=== PATIENT | female | born 1985 | race Caucasian/White ===

== ENCOUNTER 2022-02-14 18:59 | Emergency (ER) | payer SELFPAY ==
--- NOTE | 2022-02-14 20:16 | RAD REPORT ---
EXAM DESCRIPTION: RAD - Wrist Left 3 View - 02/14/2022 8:06 pm CLINICAL HISTORY: Pain COMPARISON: No comparisons FINDINGS/IMPRESSION: Distal radial impaction fracture with overriding and approximately 2/3 shaft wi dth of posterior displacement. Dorsal tilt of the distal radius is present. The fracture likely exten ds to the articular surface. Mildly displaced ulnar styloid fracture.
[2022-02-14] MEDS ORDERED: ONDANSETRON 4 MG/2 ML VIAL ONE ×2 (20:17→21:49)
[2022-02-14] MEDS ORDERED: MORPHINE 4 MG/ML SYR ONE (20:17)
[2022-02-14] MEDS ORDERED: propofoL 200 MG/20 ML VIAL IV ONE ×2 (21:50→22:13)
--- NOTE | 2022-02-14 22:28 | ER ---
Nurse's Notes [facility] Name: Teena Mensah Age: 36 yrs Sex: Female : 1985 Arrival Date: 02/14/2022 Time: 19:02 Bed 13 Private MD: Diagnosis: Displaced transverse fracture of shaft of left radius;Nondisplaced fracture of left ulna styloid process, initial encounter for closed fracture Presentation: 02/14 19:16 Chief complaint: Patient states: I was running in a race and fell and feel like I jb4 dislocated my wrist. Coronavirus screen: At this time, the client does not indicate any symptoms associated with coronavirus-19. Ebola Screen: No symptoms or risks identified at this time. 19:16 Method Of Arrival: Wheelchair jb4 19:16 Initial Sepsis Screen: Does the patient meet any 2 criteria? No. Patient's initial jb4 sepsis screen is negative. Does the patient have a suspected source of infection? No. Patient's initial sepsis screen is negative. Risk Assessment: Do you want to hurt yourself or someone else? Patient reports no desire to harm self or others. Onset of symptoms was February 14, 2022. Transition of care: patient was not received from another setting of care. 19:16 Acuity: ANGEL 3 jb4 Triage Assessment: 21:50 General: Appears uncomfortable, Behavior is appropriate for age. Pain: Complains of ke1 pain in left arm Pain currently is 10 out of 10 on a pain scale. Musculoskeletal: Range of motion: limited in left elbow and left wrist. Historical: - Allergies: 19:22 No Known Allergies; jb4 - Home Meds: 19:22 None [Active]; jb4 - PMHx: 19:22 None; jb4 - PSHx: 19:22 tubal ligation; jb4 - Immunization history:: Adult Immunizations up to date. - Social history:: Smoking status: Patient denies any tobacco usage or history of. - Family history:: not pertinent. - Hospitalizations: : No recent hospitalization is reported. Screenin:50 Abuse screen: Denies threats or abuse. Nutritional screening: No deficits noted. ke1 Tuberculosis screening: No symptoms or risk factors identified. Fall Risk Fall in past 12 months (25 points). No secondary diagnosis (0 pts). IV access (20 points). Ambulatory Aid- None/Bed Rest/Nurse Assist (0 pts). Gait- Normal/Bed Rest/Wheelchair (0 pts) Mental Status- Oriented to own ability (0 pts). Total Saravia Fall Scale indicates High Risk Score (45 or more points). Vital Signs: 19:16 BP 107 / 62; Pulse 103; Resp 16; Temp 98.5(O); Pulse Ox 97% on R/A; Weight 72.57 kg jb4 (R); Height 5 ft. 1 in. (154.94 cm); Pain 10/10; 19:16 Body Mass Index 30.23 (72.57 kg, 154.94 cm) jb4 ED Course: 19:02 Patient arrived in ED. bp1 19:03 Jaret South MD is Attending Physician. rn 19:22 Triage completed. jb4 19:22 Arm band placed on right wrist. jb4 19:40 Cj He RN is Primary Nurse. ke1 20:08 XRAY Wrist LEFT 3 view In Process Unspecified. EDMS 20:25 Inserted saline lock: 20 gauge in right antecubital area, using aseptic technique. ke1 22:00 Assist provider with reduction of left wrist. ke1 22:27 Bryant Stewart MD is Referral Physician. rn 22:52 XRAY Wrist LEFT 2 view In Process Unspecified. EDMS Administered Medications: 20:26 Drug: morphine 4 mg Route: IVP; Site: right antecubital; ke1 20:26 Drug: Zofran (Ondansetron) 4 mg Route: IVP; Site: right antecubital; ke1 22:00 Drug: Zofran (Ondansetron) 2 mg Route: IVP; Site: right antecubital; ke1 22:05 Drug: Propofol 50 mg {Note: 2207 50 MG 2210 50 MG.} Route: IVP; Site: right antecubital;ke1 Outcome: 22:28 Discharge ordered by . rn 23:34 Patient left the ED. jb4 Signatures: Dispatcher [employer] EDMS Jaert South MD MD rn Bryson, James, RN RN jb4 Teena Henry bp1 Cj He RN RN ke1 Corrections: (The following items were deleted from the chart) 19:22 19:16 Resp 16bpm; Temp 98.5F Oral; Height 5 ft. 1 in.; Pain 08/10; jb4 jb4 22:54 22:05 Propofol 50 mg IVP in right antecubital ke1 ke1
--- NOTE | 2022-02-14 22:29 | EDPHYS ---
Physician Documentation [facility] Name: Teena Mensah Age: 36 yrs Sex: Female : 1985 Arrival Date: 02/14/2022 Time: 19:02 Bed 13 Private MD: ED Physician Jaret South HPI: 02/14 19:21 This 36 yrs old Female presents to ER via Wheelchair with complaints of Wrist Injury, rn Arm Injury. 19:21 The patient or guardian reports decreased range of motion, injury, pain, swelling. The rn complaints affect the left wrist diffusely. Onset: The symptoms/episode began/occurred just prior to arrival. Modifying factors: The symptoms are alleviated by holding still, ice/coldpack to affected area, the symptoms are aggravated by movement. Associated signs and symptoms: Pertinent negatives: cyanosis distally, numbness distally, tingling distally. The patient has not experienced similar symptoms in the past. The patient has not recently seen a physician. Pt reports fall while running, fell with outstretched arm, isolated injury to left wrist. + deformity. . Historical: - Allergies: 19:22 No Known Allergies; jb4 - Home Meds: 19:22 None [Active]; jb4 - PMHx: 19:22 None; jb4 - PSHx: 19:22 tubal ligation; jb4 - Immunization history:: Adult Immunizations up to date. - Social history:: Smoking status: Patient denies any tobacco usage or history of. - Family history:: not pertinent. - Hospitalizations: : No recent hospitalization is reported. ROS: 19:23 Constitutional: Negative for fever, chills, and weight loss, Eyes: Negative for injury, rn pain, redness, and discharge, Neck: Negative for injury, pain, and swelling, MS/Extremity: + injury and swelling to left wrist. Skin: Negative for injury, rash, and discoloration, Neuro: Negative for weakness, numbness, tingling Exam: 19:23 Hand exam: is negative for laceration, Exam is positive for decreased range of motion, rn deformity, swelling, tenderness, ROM: limited active range of motion due to pain, limited passive range of motion due to pain. 19:23 Constitutional: This is a well developed, well nourished patient who is awake, alert, crying, left wrist held in sling Head/Face: Normocephalic, atraumatic. Eyes: Periorbital areas with no swelling, redness, or edema. Cardiovascular: Tachycardic, regular MS/ Extremity: Pulses equal, no cyanosis. + ROM limited 2/2 pain, + dinner fork deformity left distal wrist, strong radial pulse with normal cap refill. Neuro: Awake and alert, GCS 15 Vital Signs: 19:16 BP 107 / 62; Pulse 103; Resp 16; Temp 98.5(O); Pulse Ox 97% on R/A; Weight 72.57 kg jb4 (R); Height 5 ft. 1 in. (154.94 cm); Pain 10/10; 19:16 Body Mass Index 30.23 (72.57 kg, 154.94 cm) jb4 Procedures: 22:25 Splinting: Splint applied to left wrist using wrist splint, plaster sugar tong. applied rn by myself. post reduction film - reveals improved alignment, Examined by me, post splint application: neurovascular intact, 2+ distal pulses palpable, brisk capillary refill noted, Patient tolerated well. Reduction: of the left wrist, using traction, manipulation, finger traps and weight countertraction, Immobilized with wrist splint, Patient tolerated well. Post reduction film - reveals improved alignment. Moderate sedation: Pre-procedure assessment: the patient has been NPO 4 hour(s) prior to arrival, ASA physical classification: I - healthy, no underlying organic disease, Airway assessment: able to hyperextend neck, able to maintain airway, can open mouth without difficulty, Monitoring during procedure: awake overnight monitor, continuous pulse oximetry, nurse at bedside at all times, Medications employed: propofol 150mg, Post-procedure assessment: the patient is mildly sedated, Respiratory status: even and unlabored, a reversal agent was not used. MDM: 19:03 Patient medically screened. rn 22:25 Differential diagnosis: closed fracture. Data reviewed: vital signs, nurses notes, rn radiologic studies, plain films, and as a result, I will discharge patient. Counseling: I had a detailed discussion with the patient and/or guardian regarding: the historical points, exam findings, and any diagnostic results supporting the discharge/admit diagnosis, radiology results, the need for outpatient follow up, to return to the emergency department if symptoms worsen or persist or if there are any questions or concerns that arise at home. Response to treatment: the patient's symptoms have markedly improved after treatment, and as a result, I will discharge patient. Special discussion: I discussed with the patient/guardian in detail that at this point there is no indication for admission to the hospital. It is understood, however, that if the symptoms persist or worsen the patient needs to return immediately for re-evaluation. Based on the history and exam findings, there is no indication for further emergent testing or inpatient evaluation. I discussed with the patient/guardian the need to see the orthopedic surgeon for further evaluation of the symptoms. 02/14 19:19 Order name: XRAY Wrist LEFT 3 view; Complete Time: 20:25 rn 02/14 22:25 Order name: XRAY Wrist LEFT 2 view rn 02/14 19:20 Order name: IV Start; Complete Time: 20:26 rn 02/14 21:44 Order name: Moderate Sedation; Complete Time: 22:50 rn 02/14 23:01 Order name: Sling rn Administered Medications: 20:26 Drug: morphine 4 mg Route: IVP; Site: right antecubital; ke1 20:26 Drug: Zofran (Ondansetron) 4 mg Route: IVP; Site: right antecubital; ke1 22:00 Drug: Zofran (Ondansetron) 2 mg Route: IVP; Site: right antecubital; ke1 22:05 Drug: Propofol 50 mg {Note: 2207 50 MG 2210 50 MG.} Route: IVP; Site: right antecubital;ke1 Disposition Summary: 02/14/22 22:28 Discharge Ordered Location: Home rn Problem: new rn Symptoms: have improved rn Condition: Stable rn Diagnosis - Displaced transverse fracture of shaft of left radius rn - Nondisplaced fracture of left ulna styloid process, initial encounter for closed rn fracture Followup: rn - With: Bryant Stewart MD - When: 2 - 3 days - Reason: Recheck today's complaints, Continuance of care, Re-evaluation by your physician Discharge Instructions: - Discharge Summary Sheet rn - Cast or Splint Care, Adult rn - Radial Fracture rn - Ulnar Fracture rn Forms: - Medication Reconciliation Form rn - Thank You Letter rn - Antibiotic clinical quality rn - Prescription Opioid Use rn Prescriptions: - Tylenol-Codeine #3 300 mg-30 mg Oral - take 1 tablet by ORAL route every 6-8 hours As needed; 15 tablet; Refills: 0, rn Product Selection Permitted Signatures: Dispatcher [employer] EDJaret Lugo MD MD rn Bryson, James RN RN jb4 Cj He RN RN ke1 Corrections: (The following items were deleted from the chart) 19:24 19:23 Constitutional: Negative for fever, chills, and weight loss, MS/Extremity: + rn injury and swelling to left wrist. Skin: Negative for injury, rash, and discoloration, Neuro: Negative for weakness, numbness, tingling rn
[2022-02-14] MEDS ORDERED: HYDROCODONE/APAP 5/325 MG TAB ONE (23:29)
[2022-02-14 23:41] VITALS: BP 107/62; TEMP 98.5; O2SAT 97
--- NOTE | 2022-02-16 14:06 | RAD REPORT ---
EXAM DESCRIPTION: RAD - Wrist Left 2 View - 02/14/2022 10:50 pm CLINICAL HISTORY: 36 years Female, post reduction COMPARISON: None. FINDINGS/IMPRESSION: Casted view limiting the evaluation. Reduction of previously described radial fracture. Alignment is near-anatomic. Unchanged ulnar styloid fracture. Joint spaces are mostly preserved. Soft tissue swelling Electronically signed by: Joaquim Mackay DO 02/14/2022 11:22 PM CDT Due to temporary technical issues with the PACS/Fluency reporting system, reports are being signed by the in house radiologists without review as a courtesy to insure prompt reporting. The interpreting radiologist is fully responsible for the content of the report.
== END 2022-02-14 23:34 | disposition home or self-care (01) ==
LOC: ER 18:59
PROC: 0PSJXZZ Reposition Left Radius, External Approach (ICD-10-PCS; principal; 2022-02-14)
PROC: 0PSLXZZ Reposition Left Ulna, External Approach (ICD-10-PCS; 2022-02-14)
DX: S52.322A Displaced transverse fracture of shaft of left radius, initial encounter for closed fracture (principal); S52.615A Nondisplaced fracture of left ulna styloid process, initial encounter for closed fracture; W18.30XA Fall on same level, unspecified, initial encounter; Y93.02 Activity, running
CPT/HCPCS: 96374; 96375; 99285; J2405; J2704

== ENCOUNTER 2023-09-20 01:45 | Emergency (ER) | payer SELFPAY ==
--- OUTSIDE RECORDS SUMMARY | 2023-09-20 01:57 | XMS REPORT | Continuity of Care Document ---
:1985 Author Organization [facility] t Address [address] [place] [address] [place] [id number] Care Team Providers Name Role Phone No , Pcp Primary Care Physician Unavailable AVI ALCARAZ Attending Clinician Unavailable Avi Camacho Attending Clinician MARTHA PERALTA Attending Clinician Unavailable Jose Thompson MD Attending Clinician Doctor Unassigned, [place] Attending Clinician Unavailable Zaynab Fitzgerald Attending Clinician ZAYNAB BURTON Attending Clinician Unavailable Lab, Ang - Db Attending Clinician Unavailable AVI ALCARAZ Admitting Clinician Unavailable Problems Condition Condition Condition Status Onset Resolution Last Treating Co mments Source Name Details Category Date Date Treatment Clinician Date Left wrist Left wrist Disease Active Last U T fracture, fracture, 02-26 Assessmen H ealth closed, closed, 00:00: t & Plan: initial initial 00 Formattin encounter encounter g of this note might be different from the original. Left wrist distal radius and ulnar styloid fracture. Placed in a short tong splint. And placed her in a long-arm cast. She may take Tylenol ibuprofen as needed. Calcium and vitamin D. She will follow-up with her surgeon that she was to potential ly have surgery with but she has opted for nonsurgic al treatment with DrPeter miles 4 weeks time. If any worsening symptoms to return to the clinic. She has opted for nonsurgic al managemen t. And we did discuss risks and benefits and for potential better position and outcome with regards to surgery versus nonsurgic al treatment and she would like to continue with nonsurgic al treatment today. Jose Rojas MD, Family Medicine PGY 3 resident accompani ed me with the consultat ion of this patient visit. Left wrist Left wrist Disease Active U T pain pain 02-26 Health 00:00: 00 No known No known Disease Unive rs active active ity of problems problems [facility] Allergies, Adverse Reactions, Alerts Allergy Allergy Status Severity Reaction(s) Onset Inactive Treating Comm ents Source Name Type Date Date Clinician ESCITALO DRUG Active Palpitations Un sebastien PRAM INGREDI 03-11 ity of 00:00: [address] Escitalo Propensi Active Palpitations Univers pram ty to 03-11 ity of adverse 00:00: [place] [facility] NO KNOWN Drug Active Univers ALLERGIE Class ity of S [facility] Social History Social Habit Start Date Stop Date Quantity Comments Source History of Smoker University of tobacco use [facility] History [facility] Alcohol Std Drinks History [facility] Alcohol Binge History [facility] Alcohol Comment Exposure to 2023-03-01 2023-03-11 Not sure [facility] SARS-CoV-2 00:00:00 16:15:00 [facility] (event) Branch History [facility] 2022-02-26 2022-02-26 1 [facility] Alcohol Frequency 00:00:00 00:00:00 Alcohol intake 2022-02-26 2022-02-26 Lifetime [facility] 00:00:00 00:00:00 non-drinker (finding) Tobacco use and 2022-02-19 2022-02-19 Smokeless tobacco Un iversity of exposure 00:00:00 00:00:00 non-user [facility] Sex Assigned At [birth year] [facility] 00:00:00 00:00:00 Smoking Status Start Date Stop Date Source Smokes tobacco daily 2022-02-26 00:00:00 [facility] Smoker 2022-02-19 00:00:00 [place] o f [facility] Medications Ordered Filled Start Stop Current Ordering Indication Dosage Frequency Signature Comments Components Source Medication Medication Date Date Medication? Clinician (SIG) Name Name NaCl 0.9% 2022- 1000mL at 999 Uni vers (NS) bolus 03-11 05-11 mL/hr, ity of infusion 22:30: 23:12 1,000 mL, Richard as 1,000 mL 00 :00 IV Medical Infusion, Branch ONCE, 1 dose, On Nilsa 03/11/23 at 1730, KAROLINA cephALEXin Yes [id number] 500mg Take 1 Univers (KEFLEX) 03-02 [id number] capsule by ity of 500 mg 00:00: mouth 3 [place] capsule 00 (three) Medical times [place] daily. cephALEXin Yes [id number] 500mg Take 1 Univers (KEFLEX) 03-02 [id number] capsule by ity of 500 mg 00:00: mouth 3 [place] capsule 00 (three) Medical times [place] daily. No known No No known [place] medications 02-26 medication He alth 15:42: s 15 No known No Univers medications -21 ity of 10:17: [address] No known No Univers medications 21 ity of 10:17: [address] No known No Univers medications -21 ity of 10:17: [address] Vital Signs Vital Name Observation Time Observation Value Comments Source Systolic blood 2023-03-12 00:51:12 134 mm[Hg] Univer sity of [facility] Diastolic blood 2023-03-12 00:51:12 85 mm[facility]Hg] [facility] 2023-03-12 00:51:12 65 /min [facility] Respiratory rate 2023-03-12 00:51:12 18 /min [facility] Oxygen saturation in 2023-03-12 00:51:12 98 /min [facility] Arterial blood by [facility] Pulse oximetry Branch BMI 2023-03-11 21:17:00 27.98 kg/m2 [facility] Body temperature 2023-03-11 21:17:00 36.5 Patty [facility] height 2023-03-11 21:17:00 157.5 cm [facility] Body weight 2023-03-11 21:17:00 69.4 kg [facility] Systolic blood 2022-03-03 02:42:00 113 mm[Hg] Univer sity of pressure [facility] Diastolic blood 2022-03-03 02:42:00 74 mm[Hg] [facility] Heart rate 2022-03-03 02:42:00 77 /min [facility] Body temperature 2022-03-03 02:42:00 36.22 Patty [facility] Respiratory rate 2022-03-03 02:42:00 20 /min [facility] Body weight 2022-03-03 02:42:00 72.576 kg [facility] BMI 2022-03-03 02:42:00 30.23 kg/m2 [facility] Oxygen saturation in 2022-03-03 02:42:00 100 /min [facility] Arterial blood by [facility] Pulse oximetry [place] Procedures Procedure Date / Time Performing Clinician Source Performed XR CHEST 2 VW 2023-03-12 00:24:00 Avi Alcaraz [facility] POCT TEST 2023-03-11 22:10:00 Avi Alcaraz [facility] CBC WITH DIFF 2023-03-11 22:03:00 Avi Alcaraz [facility] D-DIMER 2023-03-11 22:03:00 Avi Alcaraz [facility] URINALYSIS 2023-03-11 22:03:00 Avi Alcaraz [facility] N-TERMINAL PRO-BNP 2023-03-11 22:03:00 [facility] URINE DRUG (IMMUNOASSAY) 2023-03-11 22:03:00 Avi Alcaraz [facility] nch SCREEN W/O REFLEX LIPASE 2023-03-11 22:03:00 Avi Alcaraz [facility] TROPONIN I 2023-03-11 22:03:00 Avi Alcaraz [facility] FREE T4 2023-03-11 22:03:00 Avi Alcaraz [facility] THYROID STIMULATING 2023-03-11 22:03:00 Avi Alcaraz [facility] HORMONE [facility] COMP. METABOLIC PANEL 2023-03-11 22:03:00 Avi Alcaraz [facility] [place] ([id number]) [facility] CONSENT/REFUSAL FOR 2023-03-11 21:09:14 Doctor Unassigned, No [facility] [place] DIAGNOSIS AND TREATMENT Name [facility] CONSENT/REFUSAL FOR 2022-03-03 02:38:53 Doctor Unassigned, No Un iversity [facility] DIAGNOSIS AND TREATMENT [facility] CAST APPLICATION 2022-02-26 21:43:30 Souza, [facility] DSU PRE-OP 2022-02-25 05:01:00 Doctor Unassigned, No Univer [facility] Encounters Start End Encounter Admission Attending Care Care Encounter Source Date/Time Date/Time Type Type Clinicians Facility Department ID 2023-03-11 2023-03-11 [facility] [id number] Univers 16:19:00 19:56:00 AVI chung [facility] 2023-03-11 2023-03-11 Emergency [facility] [id number] Univers 16:19:00 19:56:00 vAi DAVID 350.1.13.10 it[facility] 4.2.7.2.686 [facility] [id number] [facility] 084 Branch 2022-03-02 2022-03-02 Emergency X FABIAN [facility] ERT [id number] Univers 21:44:00 22:18:00 MARTHA chung of [facility] 2022-03-02 2022-03-02 Emergency Fabian, TRAUMA [id number] Univers 21:44:00 22:18:00 [facility] 350.1.13.10 it [place] [id number] [facility] 014 [place] 2022-02-26 2022-02-26 Office Danny [facility] [id number] [place] 15:15:00 16:31:47 Visit YOGESH [place] 350.1.13.58 [facility] 9.2.7.2.686 [place] 9 [id number] 2022-02-25 2022-02-25 Orders Doctor MARTHA [id number] Univers 00:00:00 00:00:00 Only Unassigned, CARLI 350.1.13.10 ity of [place] [facility] 4.2.7.2.686 Richard as [id number] [facility] 00[address] [place] 2022-02-23 2022-02-23 Telephone Micheal [facility] [id number] Univers 00:00:00 00:00:00 Zaynab Resolver 350.1.13.10 it y of [place] 4.2.7.2.686 Richard as ÁNGELA?BLEA [id number] [facility] [address] [place] MEDICAL OFFICE [facility] 2022-02-19 2022-02-19 [facility] [id number] Univers 10:55:00 23:59:00 ZAYNAB itisabella [facility] 2022-02-19 2022-02-19 Operation Agent Lab, Ang - [facility] 1.2.840.1 [id number] Univers 11:30:00 11:45:00 Visit Micheal Zaynab [facility] 350.1.13.10 ity of [place] 4.2.7.2.686 Richard as ÁNGELA?BLEA [id number] Id [facility] [address] [place] MEDICAL OFFICE [facility] 2022-02-19 2022-02-19 Outpatient R MICHEAL [facility] [id number] Univers 11:30:00 11:30:00 ZAYNAB itisabella [facility] 2022-02-19 2022-02-19 [facility] 1.2.840.114 [id number] Univers 10:00:00 10:30:00 Visit [facility] Resolver 350.1.13.10 it y of [place] 4.2.7.2.686 Richard as ÁNGELA?BLEA [id number] Id dical KNMARYCHUY [address] [place] MEDICAL OFFICE BUILDING 2022-02-19 2022-02-19 Outpatient R BURTON [facility] [id number] Univers 10:00:00 10:00:00 ZAYNAB chung [facility] 2022-02-19 2022-02-19 Telephone [facility] [id number] Univers 00:00:00 00:00:00 Zaynab [facility] 350.1.13.10 it y [facility] 4.2.7.2.686 Richard as ÁNGELA?BLEA [id number] Id dicfatou [facility] [address] [facility] Results Test Description Test Time Test Comments Results Result Comments Source THYROID STIMULATING HORMONE 2023-03-11 23:01:52 Test Item Value Reference Range Interpretation Comme nts TSH (test code = 9468544973) 1.15 See_Comment [Automated message] The system which generated this result transmitted ref erence range: 0.45 - 4.70 mIU/L. T he reference range was not used to interpret this result as pop l/abnormal. Lab Interpretation (test code = Normal 12420-9) [id number] 22:53:09 Test Item Value Reference Interpretation Comments Range D-DIMER (test code = See_Comment [Autom ated [id number]) message] The system which generated this result transmitted reference range : <0.41 ?g/mL (FEU). The reference range was not used to interpret this result as normal/abnormal . KELLIE (test code = This test may be KELLIE) used in conjunction with a clinical pretest probability (PTP) assessment model to exclude venous thromboembolism (VTE) in patients suspected of deep venous thrombosis (DVT) and pulmonary embolism (PE) A D-Dimer value less than 0.50 ?g/ml (FEU) has a negative predicative value of 96 to 100% (95% CI)and 97 to 100% (95% CI) as an aid in the diagnosis of deep vein thrombosis (DVT) and pulmonary embolism when there is low or moderate pretest probability of PE or DVT. D-Dimer values are expressed in initial fibrinogen equivalent units (FEU)" The assay results should be used with other information, including the clinical context, in forming a diagnosis. Lab Interpretation Normal (test code = 14478-2) [facility] [id number] 22:48:52 Test Item Value Reference Range Interpretation Comments FREE T4 (test code = 1.19 See_Comment [Autom ated message] [id number]) The system [employer] generated this result transmitted ref erence range: 0.78 - 2 .20 ng/dL:. The ref erence range was not u sed to interpret this result as normal/abnor mal. Lab Interpretation (test Normal code = 46972-0) [facility] [id number] 22:43:29 Test Item Value Reference Range Interpretation Comments TROPONIN I (test code = 0.002 ng/mL <=0.034 1806160128) KELLIE (test code = KELLIE) Reference (Normal) Range (defined by the 99th percentile reference limit): <= 0.034 ng/mL Note: Cardiac troponin begins to rise 3-4 hours after the onset of ischemia. Repeat in 4-6 hours if the sample was drawn within 3-4 hours of the onset of the symptom and found normal. Diagnosis of myocardial injury is made with acute changes in cTn concentrations with at least one serial sample above the 99th percentile upper reference limit (URL), taken together with the patient's clinical presentation. Biotin has been reported to cause a negative bias, interpret results relative to patient's use of biotin. Lab Interpretation Normal (test code = 34415-7) [facility]MINAL [id number] 22:40:30 Test Item Value Reference Range Interpretation Comments NT-proBNP (test code = 29 pg/mL <=125 4482677518) KELLIE (test code = KELLIE) Biotin has been reported to cause a negative bias, interpret results relative to patient's use of biotin. Lab Interpretation (test Normal code = 78305-1) [facility]. METABOLIC PANEL (34305)2023-03-11 22:31:28 Test Item Value Reference Range Interpretation Comments NA (test code = 140 mmol/L 135-145 2768081456) K (test code = 3.9 mmol/L 3.5-5.0 6437798117) CL (test code = 105 mmol/L 98-108 5636965747) CO2 TOTAL (test code 27 mmol/L 23-31 = 0122380969) AGAP (test code = 8 2-16 3876826703) BUN (test code = 17 mg/dL 7-23 4879389940) GLUCOSE (test code = 102 mg/dL 70-110 3989521681) CREATININE (test code 0.75 mg/dL 0.50-1.04 = 1989637856) TOTAL BILI (test code 0.3 mg/dL 0.1-1.1 = 4864520905) CALCIUM (test code = 9.0 mg/dL 8.6-10.6 6334660129) T PROTEIN (test code 7.5 g/dL 6.3-8.2 = 4146765809) ALBUMIN (test code = 4.6 g/dL 3.5-5.0 9441495600) ALK PHOS (test code = 39 U/L 34-122 4855586990) ALTv (test code = 17 U/L 5-35 1742-6) AST(SGOT) (test code 23 U/L 13-40 = 0278421239) eGFR (test code = 87.4 mL/min/1.73m2 5207065967) KELLIE (test code = KELLIE) Association of Glomerular Filtration Rate (GFR) and Staging of Kidney Disease* + + +- +| GFR (mL/min/1.73 m2) ?| With Kidney Damage ?| ?Without Kidney Damage+ ------+ ----+ ------+| ?>90 ?| ?Stage one ?| ? Normal ?+ -+ + -+| ?60-89 ?| ?Stage two ?| ? Decreased GFR ? + + +- +| ?30-59 ?| ?Stage three ?| ? Stage three ? + + +- +| ?15-29 ?| ?Stage four ? | ? Stage four ?+ -+ + -+| ?<15 (or dialysis) ? ?| ?Stage five ? | ? Stage five ?+ -+ + -+ *Each stage assumes the associated GFR level has been in effect for at least three months. ?Stages 1 to 5, with or without kidney disease, indicate chronic kidney disease. Notes: Determination of stages one and two (with eGFR >59mL/min/1.73 m2) requires estimation of kidney damage for at least three months as defined by structural or functional abnormalities of the kidney, manifested by either:Pathological abnormalities or Markers of kidney damage (including abnormalities in the composition of the blood or urine or abnormalities in imaging tests). [facility]IPASE2023-[facility] 22:30:47 Test Item Value Reference Range Interpretation Comments LIPASE (test code = 8053274053) 150 U/L 0-220 Lab Interpretation (test code = Normal 91068-4) [facility] CenterCB WITH [id number] 22:19:48 Test Item Value Reference Range Interpretation Comments WBC (test code = 7.56 See_Comment [Automated message] 8793-2) The system [employer] generated this result transmitted ref erence range: 4.30 - 1 1.10 10*3/?L. The re ference range was not u sed to interpret this result as normal/abnor mal. RBC (test code = 4.66 See_Comment [Automated message] 999-8) The system [employer] generated this result transmitted ref erence range: 3.93 - 5 .25 10*6/?L. The re ference range was not u sed to interpret this result as normal/abnor mal. HGB (test code = 13.5 g/dL 11.6-15.0 718-7) HCT (test code = 41.2 % 35.7-45.2 4544-3) MCV (test code = 88.4 fL 80.6-95.5 787-2) MCH (test code = 29.0 pg 25.9-32.8 785-6) MCHC (test code = 32.8 g/dL 31.6-35.1 786-4) RDW-SD (test code 42.4 fL 39.0-49.9 = 72885-3) RDW-CV (test code 13.1 % 12.0-15.5 = 788-0) PLT (test code = 196 See_Comment [Automated message] 294-3) The system [employer] generated this result transmitted ref erence range: 166 - 35 8 10*3/?L. The re ference range was not u sed to interpret this result as normal/abnor mal. MPV (test code = 12.6 fL 9.5-12.9 22930-8) NRBC/100 WBC (test 0.0 See_Comment [Automat ed message] code = 4995971583) The syste m which generated this result transmitted ref erence range: 0.0 - 10 .0 /100 WBCs. The refer ence range was not u sed to interpret this result as normal/abnor mal. NRBC x10^3 (test See_Comment [Automated message] code = 9197317538) The syste m which generated this result transmitted ref erence range: 10*3/?L. The reference range was not used to interpr et this result as normal/abnormal . GRAN MAT (NEUT) % 75.1 % (test code = 770-8) IMM GRAN % (test 0.30 % code = 0644505064) LYMPH % (test code 17.6 % = 736-9) MONO % (test code 5.2 % = 5905-5) EOS % (test code = 1.3 % 713-8) BASO % (test code 0.5 % = 706-2) GRAN MAT 5.68 10*3/uL 1.88-7.09 x10^3(ANC) (test code = 6117077591) IMM GRAN x10^3 0.00-0.06 (test code = 4951286115) LYMPH x10^3 (test 1.33 10*3/uL 1.32-3.29 code = 731-0) MONO x10^3 (test 0.39 10*3/uL 0.33-0.92 code = 742-7) EOS x10^3 (test 0.10 10*3/uL 0.03-0.39 code = 711-2) BASO x10^3 (test 0.04 10*3/uL 0.01-0.07 code = 704-7) [facility] [id number] 22:10:00 Test Item Value Reference Range Interpretation Comments POCT PREG (test code = 1605) Negative On board controls acceptable with Yes C Line (test code = 3574) POCT PREG LOT # (test code = 3575) [id number] POCT PREG TEST DATE (test 2024-06-08 code = 3576) Lab Interpretation (test code = Normal 03967-5) [facility]
[2023-09-20] MEDS ORDERED: NA CHLORIDE 0.9% 1,000 ML ONE (02:33)
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
[2023-09-20 02:56] VITALS: BP 110/82; TEMP 98.7; O2SAT 98
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
== END 2023-09-20 02:49 | disposition left against medical advice (07) ==
LOC: ER 01:45
DX: S06.0X9A Concussion with loss of consciousness of unspecified duration, initial encounter (principal); S00.83XA Contusion of other part of head, initial encounter; Y04.2XXA Assault by strike against or bumped into by another person, initial encounter
CPT/HCPCS: 70450; 70486; 72125; 76377; 99283; J7030